=== PATIENT | male | born 1960 | race Caucasian/White ===

== ENCOUNTER 2018-07-21 13:08 | Emergency (ER) | payer MEDICARE, MEDICAID ==
[2018-07-21 13:37] LABS: PLATELET COUNT, AUTOMATED 233 K/uL (150-450)
[2018-07-21] MEDS ORDERED: LISI20TA29 PO (13:43)
[2018-07-21] MEDS ORDERED: PANT40TA65 PO (13:43)
[2018-07-21] MEDS ORDERED: LEVO-3 PO (13:43)
[2018-07-21] MEDS ORDERED: SEVE2.4P3 PO (13:43)
[2018-07-21] MEDS ORDERED: CARV25TA77 PO (13:43)
[2018-07-21] MEDS ORDERED: [UNRECOGNIZED DRUG - CODE] PO (13:43)
[2018-07-21] MEDS ORDERED: CIN30PT PO (13:43)
[2018-07-21] MEDS ORDERED: SUCR1TAB51 PO (13:43)
[2018-07-21] MEDS ORDERED: INSU100I8 SC (13:43)
[2018-07-21] MEDS ORDERED: INSU100I35 SQ (13:43)
[2018-07-21] MEDS ORDERED: CHOL10005 PO (13:43)
--- NOTE | 2018-07-21 13:46 | EKG ---
FACILITY: [facility] - [place] PATIENT NAME: TYLER DUBON : [id number] MR: [id number] V: [id number] EXAM DATE: ORDERING PHYSICIAN: ROWDY ALVAREZ TECHNOLOGIST: MINERVA Test Reason : CHEST PAIN Blood Pressure : / mmHG Vent. Rate : 084 BPM Atrial Rate : 084 BPM P-R Int : 184 ms QRS Dur : 082 ms QT Int : 444 ms P-R-T Axes : 067 081 072 degrees QTc Int : 524 ms Normal sinus rhythm Septal infarct , age undetermined Prolonged QT Abnormal ECG No previous ECGs available Confirmed by CAROLE BHANDARI ([id number]) on 07/21/2018 10:38:45 PM Referred By: KIM Confirmed By:CAROLE BHANDARI
[2018-07-21] MEDS ORDERED: METOCLOPRAMIDE 10 MG/2 ML SDV IVP ONE (13:55)
[2018-07-21 14:00] VITALS: BP 206/113
--- NOTE | 2018-07-21 14:23 | ER Report ---
History and Physical Time Seen By MD: 13:10 Hx. of Stated Complaint: nausea vomiting low blood sugar HPI/ROS CHIEF COMPLAINT: hypoglycemia HISTORY OF PRESENT ILLNESS: Pt is 57 m visiting from [place] who had set up dialysis locally today. Yesterday, en route on long plane ride, he took his regular insulin at noon, however did not eat and soon fell asleep. He reports he then went to bed as soon as he arrived in town last night, thus when friend attempted to awake him, he was altered. Upon EMS arrival, blood sugar was reportedly 50. They administered D25 and pt soon awakened and responded. He presents asympotmatic though states he had nausea and headache en route. He denies cp, sob, ap, vomiting, or sgs of recent infection. At this point he wants to make sure he can get to dialysis which had been scheduled for this time. REVIEW OF SYSTEMS: Constitutional: No fever, no chills. Eyes: No discharge. ENT: No sore throat. Cardiovascular: No chest pain, no palpitations. Respiratory: No cough, no shortness of breath. Gastrointestinal: No abdominal pain, no vomiting. Genitourinary: no pain, swelling Musculoskeletal: No back pain. Skin: No rashes. Neurological: above, no focal weakness Remainder of the 14 system rev: Yes Allergies: Coded Allergies: No Known Allergies (Verified Allergy, Unknown, 07/21/18) Home Meds Reported Medications Vit B Cmplx 3/Fa/Vit C/Biotin (CHETAN-SHARAN RX TABLET) 1 Each Tablet, 1 EACH PO QDAY 07/21/18 Cinacalcet Hcl (SENSIPAR) 30 Mg Tablet, 30 MG PO 3XW 07/21/18 Cholecalciferol (Vitamin D3) (VITAMIN D3) 1,000 Unit Tablet, 2000 UNIT PO QDAY, TAB 07/21/18 Carvedilol (COREG) 25 Mg Tablet, 25 MG PO BID, #10 TAB 07/21/18 Insulin Aspart 100 Un/Ml Pen (NOVOLOG FLEXPEN) 100 Unit/1 Ml Insuln.pen, 100 UNIT SQ TID, ML 07/21/18 Insulin Degludec (Tresiba Flextouch U-100) 100 Unit/Ml (3 Ml) Insuln.pen, 20 SC QAM 07/21/18 Sevelamer Carbonate (RENVELA) 2.4 Gm Powd.pack, 2.4 GM PO TID 07/21/18 Lisinopril (LISINOPRIL) 20 Mg Tablet, 20 MG PO HS, TAB 07/21/18 Levothyroxine Sodium (LEVOTHYROXINE SODIUM) 100 Mcg Tablet, 150 MCG PO QDAY, TAB 07/21/18 Pantoprazole Sodium (PANTOPRAZOLE SODIUM) 40 Mg Tablet.dr, 40 MG PO QDAY, TAB.SR 07/21/18 Sucralfate (SUCRALFATE) 1 Gm Tablet, 1 GM PO QID 07/21/18 Reviewed Nurses Notes: Yes Hx Substance Use Disorder: No Hx Alcohol Use: No Constitutional Vital Sign - Last 24 Hours 07/21/18 07/21/18 07/21/18 07/21/18 13:08 13:13 13:19 13:30 Temp 97.4 Pulse 85 86 Resp 16 B/P (MAP) 210/99 (136) 210/99 196/109 (138) Pulse Ox 100 O2 Delivery Room Air 07/21/18 07/21/18 13:38 14:00 Pulse 81 Resp 21 B/P (MAP) 206/113 (144) Pulse Ox 99 Physical Exam General Appearance: [The patient is alert, has no immediate need for airway protection and no signs of toxicity.] Eyes: Pupils equal and round no pallor or injection. ENT, Mouth: Mucous membranes are moist. Respiratory: There are no retractions, lungs are clear to auscultation. Cardiovascular: Regular rate and rhythm. Gastrointestinal: Abdomen is soft and non tender, no masses, mildly distended, no peritoneal sgs Skin: Warm and dry, no rashes. Musculoskeletal: Extremities are without erythema, ttp, palpable cords. DIFFERENTIAL DIAGNOSIS: After history and physical exam differential diagnosis was considered for infection/sepsis/acs/hypertensive emergency/severe electrolyte abnormality or other emergent etiology of hypoglycemia and presenting symptoms. Medical Decision Making Data Points Result Diagram: 07/21/18 1244 07/21/18 1244 Laboratory Hematology Test 07/21/18 12:44 07/21/18 14:03 Red Blood Count 4.54 M/uL (4.00-5.60) Mean Corpuscular Volume 95.1 fL (80.0-96.0) Mean Corpuscular Hemoglobin 31.1 pg (26.0-33.0) Mean Corpuscular Hemoglobin Concent 32.6 g/dL (32.0-36.0) Red Cell Distribution Width 16.2 % (11.5-14.5) Mean Platelet Volume 8.6 fL (7.2-11.1) Neutrophils (%) (Auto) 83.8 % (39.4-72.5) Lymphocytes (%) (Auto) 8.9 % (17.6-49.6) Monocytes (%) (Auto) 7.0 % (4.1-12.4) Eosinophils (%) (Auto) 0.1 % (0.4-6.7) Basophils (%) (Auto) 0.2 % (0.3-1.4) Nucleated RBC Relative Count (auto) 0.1 /100WBC Neutrophils # (Auto) 10.8 K/uL (2.0-7.4) Lymphocytes # (Auto) 1.1 K/uL (1.3-3.6) Monocytes # (Auto) 0.9 K/uL (0.3-1.0) Eosinophils # (Auto) 0.0 K/uL (0.0-0.5) Basophils # (Auto) 0.0 K/uL (0.0-0.1) Nucleated RBC Absolute Count (auto) 0.02 K/uL Sodium Level 145 mmol/L (137-145) Potassium Level 4.8 mmol/L (3.5-5.0) Chloride Level 103 mmol/L (98-107) Carbon Dioxide Level 26 mmol/L (22-30) Blood Urea Nitrogen 38 mg/dl (9-21) Creatinine 6.00 mg/dl (0.66-1.25) Glomerular Filtration Rate Calc 9.8 Random Glucose 70 mg/dl (75-110) Calcium Level 10.6 mg/dl (8.4-10.2) Total Bilirubin 0.9 mg/dl (0.2-1.3) Aspartate Amino Transf (AST/SGOT) 71 U/L (0-35) Alanine Aminotransferase (ALT/SGPT) 45 U/L (0-56) Alkaline Phosphatase 152 U/L (0-126) Troponin I 0.034 ng/ml Total Protein 8.8 g/dl (6.3-8.2) Albumin 4.5 g/dl (3.5-5.0) Lipase 34 U/L (23-300) Whole Blood Glucose 119 mg/DL (75-110) Chemistry Test 07/21/18 12:44 07/21/18 14:03 White Blood Count 12.9 k/uL (4.5-11.0) Red Blood Count 4.54 M/uL (4.00-5.60) Hemoglobin 14.1 g/dL (14.0-18.0) Hematocrit 43.2 % (42.0-52.0) Mean Corpuscular Volume 95.1 fL (80.0-96.0) Mean Corpuscular Hemoglobin 31.1 pg (26.0-33.0) Mean Corpuscular Hemoglobin Concent 32.6 g/dL (32.0-36.0) Red Cell Distribution Width 16.2 % (11.5-14.5) Platelet Count 233 K/uL (150-450) Mean Platelet Volume 8.6 fL (7.2-11.1) Neutrophils (%) (Auto) 83.8 % (39.4-72.5) Lymphocytes (%) (Auto) 8.9 % (17.6-49.6) Monocytes (%) (Auto) 7.0 % (4.1-12.4) Eosinophils (%) (Auto) 0.1 % (0.4-6.7) Basophils (%) (Auto) 0.2 % (0.3-1.4) Nucleated RBC Relative Count (auto) 0.1 /100WBC Neutrophils # (Auto) 10.8 K/uL (2.0-7.4) Lymphocytes # (Auto) 1.1 K/uL (1.3-3.6) Monocytes # (Auto) 0.9 K/uL (0.3-1.0) Eosinophils # (Auto) 0.0 K/uL (0.0-0.5) Basophils # (Auto) 0.0 K/uL (0.0-0.1) Nucleated RBC Absolute Count (auto) 0.02 K/uL Glomerular Filtration Rate Calc 9.8 Calcium Level 10.6 mg/dl (8.4-10.2) Total Bilirubin 0.9 mg/dl (0.2-1.3) Aspartate Amino Transf (AST/SGOT) 71 U/L (0-35) Alanine Aminotransferase (ALT/SGPT) 45 U/L (0-56) Alkaline Phosphatase 152 U/L (0-126) Troponin I 0.034 ng/ml Total Protein 8.8 g/dl (6.3-8.2) Albumin 4.5 g/dl (3.5-5.0) Lipase 34 U/L (23-300) Whole Blood Glucose 119 mg/DL (75-110) ED Course/Re-evaluation ED Course Pt remains alert, oriented, nad in ED. Rpt blood glucose wnl after ED monitoring. He has uncontrolled htn, and electrolyte abnormalities, as expected pre-dialysis. At this point, he is hd stable sufficiently for direct transfer to dialysis. He understands importance to return immediately for any concerning symptoms and is amenable to this plan. Decision to Disposition Date: Jul 21, 2018 Decision to Disposition Time: 14:20 Depart Departure Latest Vital Signs Vital Signs Date Time Temp Pulse Resp B/P (MAP) Pulse Ox O2 Delivery O2 Flow Rate FiO2 07/21/18 14:00 206/113 (144) 07/21/18 13:38 81 21 99 07/21/18 13:19 97.4 Room Air Impression: Primary Impression: Hypoglycemia Additional Impressions: Hypertension Hematemesis Condition: Improved Disposition: HOME OR SELF-CARE Patient Instructions: Hypoglycemia in a Person with Diabetes (ED) Additional Instructions: As we discussed, go directly to dialysis. Please have dialysis team return you here if you have any concerning symptoms during dialysis. Please return to the ED immediately if you feel worse at any time. Problem Qualifiers Additional Impressions: Hypertension Hypertension type: unspecified Qualified Codes: I10 - Essential (primary) hypertension Hematemesis Nausea presence: unspecified Qualified Codes: K92.0 - Hematemesis ROWDY ALVAREZ MD Jul 21, 2018 14:23
--- NOTE | 2018-07-21 14:34 | RADIOLOGY IMAGING REPORT ---
[place] [facility] [place]: Abelardo Mendoza : 1960 MR: [id number] V: [id number] EXAM DATE: ORDERING PHYSICIAN: ROWDY ALVAREZ TECHNOLOGIST: Location: [facility] Patient: Abelardo Mendoza : 1960 Visit/Account:[id number] Date of Sevice: 07/21/2018 CHEST SINGLE AP History: dyspnea FINDINGS: Comparison studies: None. Tubes and Lines: None. Lungs and pleura: Well aerated. No evidence of focal consolidation or pleural effusions. Minimal left midlung discoid opacities noted. Small calcified nodules measuring up to 3 mm are seen in the lungs. Mediastinum: normal. Cardiac silhouette: normal . Osseous structures: Unremarkable for age . IMPRESSION: Left midlung atelectasis versus scar. Multiple tiny calcified lung nodules. Statistically this almost certainly represents previous granul omatous disease. Calcified pulmonary metastasis could be considered if patient has any extenuating m edical history (particularly thyroid cancer). Negative acute Report Dictated By: Segundo Styles MD at 07/21/2018 2:25 PM Report E-Signed By: Segundo Styles MD at 07/21/2018 2:29 PM WSN:[email or web address]
== END 2018-07-21 14:29 | disposition home or self-care (01) ==
LOC: ER 13:16
DX: E11.649 Type 2 diabetes mellitus with hypoglycemia without coma (principal); I10 Essential (primary) hypertension; K92.0 Hematemesis
CPT/HCPCS: 36416; 71045; 82948; 83690; 84484; 85025; 93005; 96374; 99284; J2765; 82040; 82247; 82310; 82374; 82435; 82565; 82947; 84075; 84132; 84155; 84295; 84450; 84460; 84520

== ENCOUNTER 2018-07-21 14:28 | Outpatient (RCR) | payer MEDICARE, MEDICAID ==
[~2018-07-21] VITALS: Ht 172.7 cm; Wt 73.0 kg
[~2018-07-21 14:28] MED LIST changes: +CALCITRIOL 0.25 MCG CAP PO SCH; +DIALYSIS ACETAMINOPHEN 325 MG PO PRN; +LIDOCAINE/SOD BICARB 8.4% SYR SC PRN; +LOPERAMIDE HCL 2 MG CAP PO PRN; +PROMETHAZINE HCL 25 MG TAB PO PRN; +diphenhydr DIALYSIS 50 MG/ML IVP PRN
[2018-07-21] MEDS: HEPARIN (PORCINE) 1000 UNIT/ML (DIALYSIS) IVP PRN (14:55)
[2018-07-24] MEDS: HEPARIN (PORCINE) 1000 UNIT/ML (DIALYSIS) IVP PRN (14:04)
[2018-07-31] MEDS ORDERED: PROMETHAZINE HCL 25 MG TAB PO PRN (11:40)
[2018-07-31] MEDS ORDERED: LOPERAMIDE HCL 2 MG CAP PO ONE (11:40)
[2018-07-31] MEDS ORDERED: diphenhydr DIALYSIS 50 MG/ML IVP PRN (11:40)
[2018-07-31] MEDS ORDERED: DIALYSIS ACETAMINOPHEN 325 MG PO PRN (11:40)
[2018-07-31] MEDS ORDERED: LIDOCAINE/SOD BICARB 8.4% SYR SC PRN (11:40)
[2018-07-31] MEDS: CALCITRIOL 0.25 MCG CAP PO SCH (16:16)
[2018-08-01] MEDS: CALCITRIOL 0.25 MCG CAP PO SCH (09:00)
[2018-08-02] MEDS: HEPARIN (PORCINE) 1000 UNIT/ML (DIALYSIS) IVP PRN (12:05)
[2018-08-04] MEDS: HEPARIN (PORCINE) 1000 UNIT/ML (DIALYSIS) IVP PRN (11:54)
[2018-08-04] MEDS: CALCITRIOL 0.25 MCG CAP PO SCH (14:00)
[2018-08-07] MEDS: HEPARIN (PORCINE) 1000 UNIT/ML (DIALYSIS) IVP PRN (10:55)
[2018-08-09] MEDS: HEPARIN (PORCINE) 1000 UNIT/ML (DIALYSIS) IVP PRN (08:39)
[2018-08-09 12:41] LABS: PLATELET COUNT, AUTOMATED 182 K/uL (150-450)
[2018-08-09] MEDS: CALCITRIOL 0.25 MCG CAP PO PRN (14:34)
[2018-08-10] MEDS: HEPARIN (PORCINE) 1000 UNIT/ML (DIALYSIS) IVP PRN (08:39)
[2018-08-11] MEDS: HEPARIN (PORCINE) 1000 UNIT/ML (DIALYSIS) IVP PRN (11:31)
[2018-08-11] MEDS: CALCITRIOL 0.25 MCG CAP PO PRN (16:15)
[2018-08-14] MEDS: HEPARIN (PORCINE) 1000 UNIT/ML (DIALYSIS) IVP PRN (10:58)
[2018-08-14] MEDS: CALCITRIOL 0.25 MCG CAP PO PRN (15:18)
[2018-08-16] MEDS: HEPARIN (PORCINE) 1000 UNIT/ML (DIALYSIS) IVP PRN (10:58)
[2018-08-18] MEDS: HEPARIN (PORCINE) 1000 UNIT/ML (DIALYSIS) IVP PRN (11:03)
[2018-08-21] MEDS: HEPARIN (PORCINE) 1000 UNIT/ML (DIALYSIS) IVP PRN (10:55)
[2018-08-21] MEDS: CALCITRIOL 0.25 MCG CAP PO PRN (17:29)
[2018-08-23] MEDS: HEPARIN (PORCINE) 1000 UNIT/ML (DIALYSIS) IVP PRN (10:52)
[2018-08-25] MEDS: HEPARIN (PORCINE) 1000 UNIT/ML (DIALYSIS) IVP PRN (13:07)
== END 2018-08-25 18:00 | disposition home or self-care (01) ==
LOC: DIAL 14:28
PROVIDERS: ATTEND Internal Medicine Nephrology
DX: E10.10 Type 1 diabetes mellitus with ketoacidosis without coma (principal); G93.40 Encephalopathy, unspecified; N18.6 End stage renal disease; Z99.2 Dependence on renal dialysis; K22.10 Ulcer of esophagus without bleeding; E03.9 Hypothyroidism, unspecified; Z79.4 Long term (current) use of insulin; N25.81 Secondary hyperparathyroidism of renal origin; E43 Unspecified severe protein-calorie malnutrition; E10.21 Type 1 diabetes mellitus with diabetic nephropathy; R13.0 Aphagia; I12.0 Hypertensive chronic kidney disease with stage 5 chronic kidney disease or end stage renal disease; E10.22 Type 1 diabetes mellitus with diabetic chronic kidney disease
CPT/HCPCS: 36416; 82040; 82108; 82247; 82310; 82374; 82465; 82565; 82728; 82947; 82948; 83036; 83540; 83550; 83970; 84075; 84100; 84132; 84295; 84443; 84460; 84478; 84520; 85018; 85025; 86580; 86706; 87340; 90999; A9270; G0472; 86803

== ENCOUNTER → 2018-07-21 | Outpatient (CLI) | payer MEDICARE, MEDICAID ==
[~2018-07-21] MED LIST: CARV25TA77 PO; CHOL10005 PO; CIN30PT PO; INSU100I35 SQ; INSU100I8 SC; LEVO-3 PO; LISI20TA29 PO; PANT40TA65 PO; SEVE2.4P3 PO; SUCR1TAB51 PO; [UNRECOGNIZED DRUG - CODE] PO
== END ==
LOC: AMB 12:32
PROVIDERS: ATTEND Nurse Practitioner
DX: E16.2 Hypoglycemia, unspecified (principal); R53.1 Weakness; R11.2 Nausea with vomiting, unspecified; E10.22 Type 1 diabetes mellitus with diabetic chronic kidney disease; N18.3 Chronic kidney disease, stage 3 (moderate)
CPT/HCPCS: A0425; A0427

== ENCOUNTER 2018-07-24 18:39 | Emergency (ER) | payer MEDICARE, MEDICAID ==
--- NOTE | 2018-07-24 19:15 | ER Report ---
History and Physical Time Seen By MD: 18:48 Hx. of Stated Complaint: altered mentation per dialysis joseph[facility] kuhn, from presentation on Tuesday. Pt appears slow to answer but is A&Ox4. Per pt, "I'm weak." HPI/ROS CHIEF COMPLAINT: altered mental status HISTORY OF PRESENT ILLNESS: This is a 57 year old male. He is visiting here from [place]. Has end stage renal disease from diabetes, does not make urine. He was at dialysis on Tuesday, normal mental status. Today, his mental status was very altered. His family he is staying with had noticed confusion over the weekend, and worse today. He described generalized weakness and fatigue. He states that he has not been taking as much insulin because he is not eating as much. Has recent history of possible esophageal ulcer and on Carafate and PPI. Dialysis today was stopped early, worried about pulling too much fluid off. Has had GI bleeding with hematemesis in the last week. REVIEW OF SYSTEMS: Constitutional: No fever or chills. Eyes: No vision changes. ENT: No sore throat. No congestion. Cardiovascular: No chest pain. No palpitations. Respiratory: No cough. No shortness of breath. Gastrointestinal: No abdominal pain. Genitourinary: As above. Musculoskeletal: No back pain. No extremity pain. Skin: No rashes. Neurological: No numbness. General weakness, but no focal. No headache. Allergies: Coded Allergies: No Known Allergies (Verified Allergy, Unknown, 07/21/18) Home Meds Reported Medications Vit B Cmplx 3/Fa/Vit C/Biotin (CHETAN-SHARAN RX TABLET) 1 Each Tablet, 1 EACH PO QDAY 07/21/18 Cinacalcet Hcl (SENSIPAR) 30 Mg Tablet, 30 MG PO 3XW 07/21/18 Cholecalciferol (Vitamin D3) (VITAMIN D3) 1,000 Unit Tablet, 2000 UNIT PO QDAY, TAB 07/21/18 Carvedilol (COREG) 25 Mg Tablet, 25 MG PO BID, #10 TAB 07/21/18 Insulin Aspart 100 Un/Ml Pen (NOVOLOG FLEXPEN) 100 Unit/1 Ml Insuln.pen, 100 UNIT SQ TID, ML 07/21/18 Insulin Degludec (Tresiba Flextouch U-100) 100 Unit/Ml (3 Ml) Insuln.pen, 20 SC QAM 07/21/18 Sevelamer Carbonate (RENVELA) 2.4 Gm Powd.pack, 2.4 GM PO TID 07/21/18 Lisinopril (LISINOPRIL) 20 Mg Tablet, 20 MG PO HS, TAB 07/21/18 Levothyroxine Sodium (LEVOTHYROXINE SODIUM) 100 Mcg Tablet, 150 MCG PO QDAY, TAB 07/21/18 Pantoprazole Sodium (PANTOPRAZOLE SODIUM) 40 Mg Tablet.dr, 40 MG PO QDAY, TAB.SR 07/21/18 Sucralfate (SUCRALFATE) 1 Gm Tablet, 1 GM PO QID 07/21/18 Past Medical/Surgical History Type 2 diabetes, insulin-dependent. End stage renal disease, gastroesophageal reflux disease with hiatal hernia and recent GI bleed, hypertension, asthma, surgeries include appendectomy, tonsillectomy, cataracts, and dental surgeries Reviewed Nurses Notes: Yes Hx Substance Use Disorder: No Hx Alcohol Use: No Constitutional Vital Sign - Last 24 Hours 07/24/18 07/24/18 07/24/18 07/24/18 18:39 18:42 18:47 18:54 Temp 98.4 Pulse ??? 72 72 Resp 14 18 B/P (MAP) 119/64 (82) 119/64 Pulse Ox 95 96 O2 Delivery Room Air 07/24/18 07/24/18 07/24/18 07/24/18 19:00 19:09 19:24 19:30 Pulse 72 73 Resp 15 17 B/P (MAP) ???/??? (1665) ???/??? (1665) Pulse Ox 95 07/24/18 07/24/18 07/24/18 07/24/18 19:34 19:39 19:54 20:00 Pulse 74 68 Resp 17 16 B/P (MAP) 130/70 (90) 137/67 (90) Pulse Ox 94 94 O2 Delivery Room Air 07/24/18 07/24/18 07/24/18 07/24/18 20:09 20:30 20:35 20:50 Pulse 73 75 62 Resp 16 14 15 B/P (MAP) 148/68 (94) Pulse Ox 92 98 96 O2 Delivery Room Air 07/24/18 07/24/18 07/24/1819 21:00 21:05 21:20 21:30 Pulse 73 76 Resp 14 10 B/P (MAP) 122/67 (85) 142/76 (98) Pulse Ox 96 07/24/18 07/24/18 07/24/18 07/24/18 21:35 21:50 22:00 22:05 Pulse 79 82 Resp 14 10 13 B/P (MAP) 133/57 (82) Pulse Ox 96 95 07/24/18 07/24/18 22:20 22:35 Pulse 82 78 Resp 19 16 Pulse Ox 94 95 Physical Exam General Appearance: The patient is alert. No acute distress. Eyes: Pupils are equal, round. No pallor, injection or icterus. ENT: Mucous membranes are moist. Normal oral mucosa. Posterior oropharynx is normal. Normal nasal mucosa. Normal tympanic membranes and canals. Neck: Supple and non tender. No lymphadenopathy. Respiratory: Breathing easily and unlabored. Lungs are clear to auscultation. Cardiovascular: Regular rate and rhythm. No murmurs, gallops or rubs. Normal capillary refill. No edema. No carotid bruits. Gastrointestinal: Abdomen is soft and non tender. Nondistended. Normal active bowel sounds. No costovertebral angle tenderness with percussion. Neurological: Alert and oriented x3. Cranial nerves II through XII show no acute deficits on my exam. No focal neurologic deficits in the extremities. Skin: Warm and dry. No rashes. Musculoskeletal: Extremities are nontender. Full range of motion. No tenderness in palpation of the cervical, thoracic and lumbar spine. DIFFERENTIAL DIAGNOSIS: After history and physical exam, differential diagnosis was considered for altered mental status including but not limited to ketoacidosis, infectious process, electrolyte abnormality, head injury and medication or drug effect. Medical Decision Making Data Points Result Diagram: 07/24/18 1950 07/24/18 1950 Laboratory Hematology Test 07/24/18 00:00 07/24/18 19:50 07/24/18 22:43 Troponin I 0.055 ng/ml Red Blood Count 3.83 M/uL (4.00-5.60) Mean Corpuscular Volume 94.0 fL (80.0-96.0) Mean Corpuscular Hemoglobin 32.1 pg (26.0-33.0) Mean Corpuscular Hemoglobin Concent 34.1 g/dL (32.0-36.0) Red Cell Distribution Width 15.9 % (11.5-14.5) Mean Platelet Volume 8.0 fL (7.2-11.1) Neutrophils (%) (Auto) 74.8 % (39.4-72.5) Lymphocytes (%) (Auto) 13.5 % (17.6-49.6) Monocytes (%) (Auto) 10.8 % (4.1-12.4) Eosinophils (%) (Auto) 0.5 % (0.4-6.7) Basophils (%) (Auto) 0.4 % (0.3-1.4) Nucleated RBC Relative Count (auto) 0.3 /100WBC Neutrophils # (Auto) 9.2 K/uL (2.0-7.4) Lymphocytes # (Auto) 1.7 K/uL (1.3-3.6) Monocytes # (Auto) 1.3 K/uL (0.3-1.0) Eosinophils # (Auto) 0.1 K/uL (0.0-0.5) Basophils # (Auto) 0.1 K/uL (0.0-0.1) Nucleated RBC Absolute Count (auto) 0.03 K/uL Sodium Level 133 mmol/L (137-145) Potassium Level 3.7 mmol/L (3.5-5.0) Chloride Level 87 mmol/L (98-107) Carbon Dioxide Level 22 mmol/L (22-30) Blood Urea Nitrogen 32 mg/dl (9-21) Creatinine 3.20 mg/dl (0.66-1.25) Glomerular Filtration Rate Calc 20.2 Random Glucose 502 mg/dl (75-110) Lactate 2.1 mmol/L (0.7-2.1) Calcium Level 8.6 mg/dl (8.4-10.2) Total Bilirubin 1.0 mg/dl (0.2-1.3) Aspartate Amino Transf (AST/SGOT) 42 U/L (0-35) Alanine Aminotransferase (ALT/SGPT) 41 U/L (0-56) Alkaline Phosphatase 181 U/L (0-126) Total Protein 7.3 g/dl (6.3-8.2) Albumin 3.9 g/dl (3.5-5.0) Acetone, Qualitative Small Whole Blood Glucose 501 mg/DL (75-110) Chemistry Test 07/24/18 00:00 07/24/18 19:50 07/24/18 22:43 Troponin I 0.055 ng/ml White Blood Count 12.4 k/uL (4.5-11.0) Red Blood Count 3.83 M/uL (4.00-5.60) Hemoglobin 12.3 g/dL (14.0-18.0) Hematocrit 36.0 % (42.0-52.0) Mean Corpuscular Volume 94.0 fL (80.0-96.0) Mean Corpuscular Hemoglobin 32.1 pg (26.0-33.0) Mean Corpuscular Hemoglobin Concent 34.1 g/dL (32.0-36.0) Red Cell Distribution Width 15.9 % (11.5-14.5) Platelet Count 188 K/uL (150-450) Mean Platelet Volume 8.0 fL (7.2-11.1) Neutrophils (%) (Auto) 74.8 % (39.4-72.5) Lymphocytes (%) (Auto) 13.5 % (17.6-49.6) Monocytes (%) (Auto) 10.8 % (4.1-12.4) Eosinophils (%) (Auto) 0.5 % (0.4-6.7) Basophils (%) (Auto) 0.4 % (0.3-1.4) Nucleated RBC Relative Count (auto) 0.3 /100WBC Neutrophils # (Auto) 9.2 K/uL (2.0-7.4) Lymphocytes # (Auto) 1.7 K/uL (1.3-3.6) Monocytes # (Auto) 1.3 K/uL (0.3-1.0) Eosinophils # (Auto) 0.1 K/uL (0.0-0.5) Basophils # (Auto) 0.1 K/uL (0.0-0.1) Nucleated RBC Absolute Count (auto) 0.03 K/uL Glomerular Filtration Rate Calc 20.2 Lactate 2.1 mmol/L (0.7-2.1) Calcium Level 8.6 mg/dl (8.4-10.2) Total Bilirubin 1.0 mg/dl (0.2-1.3) Aspartate Amino Transf (AST/SGOT) 42 U/L (0-35) Alanine Aminotransferase (ALT/SGPT) 41 U/L (0-56) Alkaline Phosphatase 181 U/L (0-126) Total Protein 7.3 g/dl (6.3-8.2) Albumin 3.9 g/dl (3.5-5.0) Acetone, Qualitative Small Whole Blood Glucose 501 mg/DL (75-110) Toxicology Test 07/24/18 19:50 Acetone, Qualitative Small EKG/Imaging EKG Interpretation 12 lead EKG: Rhythm: normal sinus rhythm, rate 75 [place]: normal QRS: normal ST segments: normal Imaging CT Head without contrast Indication: Altered mental status. Comparison: None available Technique: Axial CT images were obtained through the brain from the skull base to the vertex without administration of IV contrast. Reformatted coronal and sagittal images were also obtained. One of the following dose optimization techniques was utilized in the performance of this exam: automated exposure control; adjustment of the mA and/or kV according to the patient's size; or use of an iterative reconstruction technique. Specific details can be referenced in the facility's radiology CT exam operational policy. Findings: No evidence of mass, mass effect, or midline shift. No acute intracranial hemorrhage or acute territorial infarction. No extra-axial fluid collection or hydrocephalus. No abnormal density. Adler/white matter differentiation appears normal. Bony structures show no fractures or lesions. The visualized paranasal sinuses and mastoid air cells are clear. IMPRESSION: 1. Negative unenhanced CT of the head. Report Dictated By: Faheem Cespedes at 07/24/2018 8:49 PM CHEST SINGLE AP Indication: Altered mental status.. Comparison: 07/21/2018. Findings: Cardiomediastinal silhouette and pulmonary vessels within normal limits. There is no focal infiltrate or lobar consolidation. No pneumothorax or pleural effusion. No nodule. Stable scar seen in left midlung. Upper abdomen is unremarkable. No acute bony abnormality. IMPRESSION: 1. No acute cardiopulmonary process. Report Dictated By: Faheem Cespedes at 07/24/2018 8:47 PM ED Course/Re-evaluation Clinical Indication for ER IV: Hydration, IV Access ED Course The patient is making sense on interview but very slow to respond and very weak. Labs obtained. His sugar has come down into the 400s after the insulin given and dialysis. Metabolic panel was obtained and is back up to 500. He does have an anion gap of 24. Small acetone. Potassium is normal at 3.7 but likely total body potassium is low. EKG unremarkable as noted above. Rest of labs are unremarkable, mild anemia, mild elevated white count. He is not making urine so we did not get a urinalysis. I called and spoke with Dr. Rich, at [facility], who accepted the patient to admission there at the ICU. We are starting gentle hydration with normal saline at 100 cc an hour and a started an insulin drip at 6.5 units per hour based on weight. Decision to Disposition Date: Jul 24, 2018 Decision to Disposition Time: 21:40 Transfer Facility Patient was transferred to [facility] via ambulance. The transfer was emergent, and was required because the capabilities of the receiving hospital. Consent for transfer was obtained from the patient. See EMTALA for transfer orders. Depart Departure Latest Vital Signs Vital Signs Date Time Temp Pulse Resp B/P (MAP) Pulse Ox O2 Delivery O2 Flow Rate FiO2 07/24/18 22:35 78 16 95 07/24/18 22:00 133/57 (82) 07/24/18 20:09 Room Air 07/24/18 18:47 98.4 Impression: Primary Impression: Diabetic ketoacidosis Additional Impression: End stage renal disease on dialysis Condition: Condition Unchanged Disposition: XFER TO ACUTE CARE HOSPITAL Problem Qualifiers Primary Impression: Diabetic ketoacidosis Diabetes mellitus type: type 2 Diabetes mellitus complication detail: without coma Qualified Codes: E11.10 - Type 2 diabetes mellitus with ketoacidosis without coma JESI NJ MD Jul 24, 2018 19:15
[2018-07-24 20:11] LABS: PLATELET COUNT, AUTOMATED 188 K/uL (150-450)
--- NOTE | 2018-07-24 20:53 | RADIOLOGY IMAGING REPORT ---
FACILITY: [facility] - [place] PATIENT NAME: Abelardo Mendoza : 1960 MR: [id number] V: [id number] EXAM DATE: ORDERING PHYSICIAN: JESI NJ TECHNOLOGIST: Location: [facility] Patient: Abelardo Mendoza : 1960 Visit/Account:[id number] Date of Sevice: 07/24/2018 CHEST SINGLE AP Indication: Altered mental status.. Comparison: 07/21/2018. Findings: Cardiomediastinal silhouette and pulmonary vessels within normal limits. There is no focal infiltrate or lobar consolidation. No pneumothorax or pleural effusion. No nodule. Stable scar seen in left midlung. Upper abdomen is unremarkable. No acute bony abnormal ity. IMPRESSION: 1. No acute cardiopulmonary process. Report Dictated By: Faheem Cespedes at 07/24/2018 8:47 PM Report E-Signed By: Faheem Cespedes at 07/24/2018 8:49 PM WSN:[email or web address]
--- NOTE | 2018-07-24 20:56 | RADIOLOGY IMAGING REPORT ---
FACILITY: [facility] [place] PATIENT NAME: Abelardo Mendoza : 1960 MR: [id number] V: [id number] EXAM DATE: ORDERING PHYSICIAN: JESI NJ TECHNOLOGIST: Location: [facility] Patient: Abeladro Mendoza : 1960 Visit/Account:[id number] Date of Sevice: 07/24/2018 CT Head without contrast Indication: Altered mental status. Comparison: None available Technique: Axial CT images were obtained through the brain from the skull base to the vertex without administration of IV contrast. Reformatted coronal and sagittal images were also obtained. One of the following dose optimization techniques was utilized in the performance of this exam: autom ated exposure control; adjustment of the mA and/or kV according to the patient's size; or use of an i terative reconstruction technique. Specific details can be referenced in the facility's radiology CT exam operational policy. Findings: No evidence of mass, mass effect, or midline shift. No acute intracranial hemorrhage or acute territorial infarction. No extra-axial fluid collection or hydrocephalus. No abnormal density. Adler/white matter differenti ation appears normal. Bony structures show no fractures or lesions. The visualized paranasal sinuses and mastoid air cells are clear. IMPRESSION: 1. Negative unenhanced CT of the head. Report Dictated By: Faheem Cespedes at 07/24/2018 8:49 PM Report E-Signed By: Faheem Cespedes at 07/24/2018 8:53 PM WSN:[email or web address]
--- NOTE | 2018-07-24 21:13 | EKG ---
FACILITY: [facility] - [place] PATIENT NAME: TYLER DUBON : [id number] MR: [id number] V: [id number] EXAM DATE: ORDERING PHYSICIAN: JESI NJ TECHNOLOGIST: DESHAUN Carpenter Reason : NEURO Blood Pressure : / mmHG Vent. Rate : 075 BPM Atrial Rate : 075 BPM P-R Int : 184 ms QRS Dur : 094 ms QT Int : 442 ms P-R-T Axes : 059 066 043 degrees QTc Int : 493 ms Normal sinus rhythm Septal infarct (cited on or before 21-JUL-2018) Abnormal ECG When compared with ECG of 21-JUL-2018 13:37, No significant change was found Confirmed by Wilber Harding ([id number] on 07/25/2018 6:35:07 AM Referred By: Confirmed By:Wilber Pino
[2018-07-24] MEDS ORDERED: NS(*) 0.9% 1000 ML BAG 1,000 ML IV PRN (21:35)
[2018-07-24] MEDS ORDERED: INS HUM REG* 100 U/ML(ER ONLY) 100 UNIT in NS(*) 0.9% 100 ML BAG 99 ML IV SCH (21:35)
[2018-07-24 22:00] VITALS: BP 133/57
== END 2018-07-24 22:55 | disposition short-term general hospital (02) ==
LOC: ER 20:13
DX: E11.10 Type 2 diabetes mellitus with ketoacidosis without coma (principal); N18.6 End stage renal disease; Z99.2 Dependence on renal dialysis; D64.9 Anemia, unspecified
CPT/HCPCS: 36416; 70450; 71045; 82009; 82948; 83605; 84484; 85025; 93005; 96365; 99285; A9270; J7030; J7050; 82040; 82247; 82310; 82374; 82435; 82565; 82947; 84075; 84132; 84155; 84295; 84450; 84460; 84520; J1815

== ENCOUNTER → 2018-07-24 | Outpatient (CLI) | payer MEDICARE, MEDICAID ==
[~2018-07-24] MED LIST changes: -CALCITRIOL 0.25 MCG CAP PO SCH; -DIALYSIS ACETAMINOPHEN 325 MG PO PRN; -LIDOCAINE/SOD BICARB 8.4% SYR SC PRN; -LOPERAMIDE HCL 2 MG CAP PO PRN; -PROMETHAZINE HCL 25 MG TAB PO PRN; -diphenhydr DIALYSIS 50 MG/ML IVP PRN
== END ==
LOC: AMB 22:39
PROVIDERS: ATTEND Nurse Practitioner
DX: E11.10 Type 2 diabetes mellitus with ketoacidosis without coma (principal); R53.83 Other fatigue; R53.1 Weakness; N18.6 End stage renal disease
CPT/HCPCS: A0425; A0426